=== PATIENT | male | born 1955 | race Caucasian/White ===

== ENCOUNTER 2019-07-06 13:20 | Emergency (ER) | payer OTHER ==
--- NOTE | 2019-07-06 15:02 | EDM.PDOC ---
ED HPI GENERAL MEDICAL PROBLEM - General Chief Complaint: General Stated Complaint: LIGHTHEADED,RINGING EARS Time Seen by Provider: 07/06/19 13:50 Source of Information: Reports: Patient History Limitations: Reports: No Limitations - History of Present Illness INITIAL COMMENTS - FREE TEXT/NARRATIVE: pt developed numbness in both arms and some ringing in his ears. Onset: Today, Sudden Duration: Hour(s): Location: Reports: Other ( tingling in both hands. ) Associated Symptoms: Reports: No Other Symptoms - Related Data Allergies Allergy/AdvReac Type Severity Reaction Status Date / Time Penicillins Allergy Anaphylactic Verified 07/06/19 13:55 Shock Home Meds: Home Meds Lansoprazole [Prevacid 24Hr] 15 mg PO DAILY 07/06/19 [History] atorvaSTATin [Lipitor] 10 mg PO DAILY 07/06/19 [History] Past Medical History Cardiovascular History: Reports: High Cholesterol Gastrointestinal History: Reports: GERD - Past Surgical History GI Surgical History: Reports: Appendectomy Other Musculoskeletal Surgeries/Procedures:: ganglian cyst on wrist Social & Family History - Caffeine Use Caffeine Use: Reports: Coffee - Recreational Drug Use Recreational Drug Use: No ED ROS GENERAL - Review of Systems Review Of Systems: See Below Constitutional: Reports: No Symptoms HEENT: Reports: No Symptoms, Other ( increase in ringing in his ears) Respiratory: Reports: No Symptoms Cardiovascular: Reports: No Symptoms Endocrine: Reports: No Symptoms GI/Abdominal: Reports: No Symptoms : Reports: No Symptoms Musculoskeletal: Reports: No Symptoms Skin: Reports: No Symptoms Neurological: Reports: Other (increased tringing in both ears. ) Psychiatric: Reports: Anxiety ED EXAM, GENERAL - Physical Exam Exam: See Below Free Text/Narrative:: pt arrived with a history of tingling in both arms and increase in his tinnitus, . He has been traveling for several days. He did not have chest pain and did not feel like his bp was high. Exam Limited By: No Limitations General Appearance: Alert, Anxious Ears: Normal TMs Nose: Normal Inspection Throat/Mouth: Normal Inspection Head: Atraumatic Neck: Normal Inspection Respiratory/Chest: No Respiratory Distress Cardiovascular: Regular Rate, Rhythm GI/Abdominal: Soft, Non-Tender (Male) Exam: Deferred Rectal (Males) Exam: Deferred Back Exam: Normal Inspection Extremities: Other (pt has normal strength bilaterally. He has excellent pulses. He states the numbness is better. He does state that he often has numbness at nite when he sleeps . 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 ) Neurological: Alert, Oriented, Normal Cognition Course - Vital Signs Last Recorded V/S: Last Vital Signs Temp 35.9 C L 07/06/19 13:57 Pulse 74 07/06/19 15:19 Resp 11 L 07/06/19 14:41 BP 159/86 H 07/06/19 15:19 Pulse Ox 98 07/06/19 14:41 - Orders/Labs/Meds Labs: Laboratory Tests 07/06/19 07/06/19 07/06/19 Range/Units 15:00 15:02 15:13 WBC 3.9 L (4.5-11.0) K/uL RBC 5.23 (4.30-5.90) M/uL Hgb 15.2 H (12.0-15.0) g/dL Hct 46.1 (40.0-54.0) % MCV 88 (80-98) fL MCH 29 (27-31) pg MCHC 33 (32-36) % Plt Count 81 L (150-400) K/uL Neut % (Auto) 60 (36-66) % Lymph % (Auto) 26 (24-44) % [place] % (Auto) 10 H (2-6) % Eos % (Auto) 4 (2-4) % Baso % (Auto) 1 (0-1) % Sodium 139 L (140-148) mmol/L Potassium 4.3 (3.6-5.2) mmol/L Chloride 103 (100-108) mmol/L Carbon Dioxide 29 (21-32) mmol/L Anion Gap 11.3 (5.0-14.0) mmol/L BUN 12 (7-18) mg/dL Creatinine 1.1 (0.8-1.3) mg/dL Est Cr Clr Drug Dosing 70.22 mL/min Estimated GFR (MDRD) > 60 (>60) Glucose 99 (74-106) mg/dL Calcium 8.7 (8.5-10.1) mg/dL Total Bilirubin 0.9 (0.2-1.0) mg/dL AST 31 (15-37) U/L ALT 40 (12-78) U/L Alkaline Phosphatase 76 (46-116) U/L Total Protein 7.3 (6.4-8.2) g/dL Albumin 3.9 (3.4-5.0) g/dL Globulin 3.4 (2.3-3.5) g/dL Albumin/Globulin Ratio 1.1 L (1.2-2.2) Urine Color Yellow (YELLOW) Urine Appearance Clear (CLEAR) Urine pH 5.5 (5.0-8.0) Ur Specific [place] 1.025 (1.008-1.030) Urine Protein Negative (NEGATIVE) mg/dL Urine Glucose (UA) Negative (NEGATIVE) mg/dL Urine Ketones Negative (NEGATIVE) mg/dL Urine Occult Blood Negative (NEGATIVE) Urine Nitrite Negative (NEGATIVE) Urine Bilirubin Negative (NEGATIVE) Urine Urobilinogen 0.2 (0.2-1.0) EU/dL Ur Leukocyte Esterase Negative (NEGATIVE) Urine RBC Not seen (0-5) Urine WBC Not seen (0-5) Ur Epithelial Cells Not seen Amorphous Sediment Not seen Urine Bacteria Not seen Urine Mucus Not seen - Re-Assessments/Exams Free Text/Narrative Re-Assessment/Exam: 07/06/19 16:12 pt has a normal ekg. His labs look good He has a low wbc and platlet count which is long standing. Departure - Departure Time of Disposition: 16:05 Disposition: Home, Self-Care 01 Condition: Fair Clinical Impression: Bilateral arm numbness and tingling while sleeping, Tinnitus, Dehydration - Discharge Information Referrals: PCP,None [Primary Care Provider] - Forms: ED Department Discharge Care Plan Goals: push fluids, rtc if increased problems, no further driving today, be sure to rest tonight. Sepsis Event Note - Evaluation Sepsis Screening Result: No Definite Risk - Focused Exam Vital Signs: Vital Signs Temp Pulse Resp BP Pulse Ox 07/06/19 15:19 74 159/86 H 07/06/19 14:41 75 11 L 164/96 H 98 07/06/19 13:57 35.9 C L 74 18 167/90 H 98 07/06/19 13:49 35.9 C L 74 18 167/90 H 98 Date Exam was Performed: 07/06/19 Time Exam was Performed: 16:08
== END 2019-07-06 16:20 | disposition home or self-care (01) ==
LOC: JP.ED 13:20
DX: R20.0 Anesthesia of skin (principal); H93.19 Tinnitus, unspecified ear; E86.0 Dehydration; E78.00 Pure hypercholesterolemia, unspecified; K21.9 Gastro-esophageal reflux disease without esophagitis; Z88.0 Allergy status to penicillin; Z79.899 Other long term (current) drug therapy
CPT/HCPCS: 36415; 80053; 81001; 85025; 93010; 99282; 99284-25